=== PATIENT | male | born 1975 | race Caucasian/White ===

== ENCOUNTER 2016-08-13 12:01 | Emergency (ER) | payer BC ==
[2016-08-13] MEDS ORDERED: TRAMADOL 50 MG TAB ONE (14:22)
== END 2016-08-13 16:15 | disposition home or self-care (01) ==
LOC: ER 12:21
DX: R09.1 Pleurisy (principal); F17.210 Nicotine dependence, cigarettes, uncomplicated
CPT/HCPCS: 71020

== ENCOUNTER 2016-08-23 01:30 | Emergency (ER) | payer BC ==
[2016-08-23] MEDS ORDERED: KETOROLAC 30 MG/ML VIAL ONE (03:55)
[2016-08-23] MEDS ORDERED: ORPHENADRINE 60 MG/2 ML AMP ONE (03:55)
== END 2016-08-23 06:02 | disposition home or self-care (01) ==
LOC: ER 01:30
DX: M54.6 Pain in thoracic spine (principal); F17.210 Nicotine dependence, cigarettes, uncomplicated
CPT/HCPCS: 36415; 71010; 80053; 82553; 83880; 84484; 85025; 93005; 96374; 96375